=== PATIENT | female | born 1975 ===

== ENCOUNTER 2019-10-26 20:20 | Emergency (ER) | payer SELFPAY ==
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
[2019-10-27] MEDS ORDERED: IBUPROFEN 400 MG TAB ONE (00:14)
--- NOTE | 2019-10-27 08:12 | RAD REPORT ---
EXAM DESCRIPTION: RAD - Hand Right 3 View - 10/26/2019 10:48 pm CLINICAL HISTORY: Right hand pain status post injury FINDINGS: No fracture or dislocation is seen. A lucency with a sclerotic border within the scaphoid probably a cyst
[2019-10-27 12:39] VITALS: TEMP 98.4
[2019-10-27 12:43] VITALS: BP 112/58; O2SAT 98
== END 2019-10-27 00:39 | disposition home or self-care (01) ==
LOC: ER 20:20
DX: S60.011A Contusion of right thumb without damage to nail, initial encounter (principal); M20.011 Mallet finger of right finger(s); V43.52XA Car driver injured in collision with other type car in traffic accident, initial encounter; Y93.89 Activity, other specified; Y92.410 Unspecified street and highway as the place of occurrence of the external cause; Z88.0 Allergy status to penicillin; Z88.2 Allergy status to sulfonamides; Z88.6 Allergy status to analgesic agent
CPT/HCPCS: 99284